=== PATIENT | female | born 1990 | race Caucasian/White ===

== ENCOUNTER 2019-09-11 05:15 | Inpatient (IN) | payer OTHER ==
[2019-09-11] VITALS (7 sets, daily range): BP systolic 97–107; BP diastolic 52–67
[~2019-09-11] VITALS: Ht 160 cm; Wt 74.0 kg
[2019-09-11] MEDS ORDERED: OXYTOCIN 30 UNITS IN 0.9% NaCl 500ML IV BAG (J2590) As Ordered ONE (05:34)
[2019-09-11] MEDS ORDERED: PENICILLIN G POTASSIUM IV 5 MU in D5W MINI-BAG PLUS 100 ML IV STA (05:54)
[2019-09-11] MEDS ORDERED: LACTATED RINGER'S 1000 ML IV STA (05:54)
[2019-09-11] MEDS ORDERED: LR 1,000 ML IV SCH (05:54)
--- NOTE | 2019-09-11 07:04 | HPEPDOC ---
Obstetrical History & Physical General Date of Admission Sep 11, 2019 at 05:42 History of Present Illness Patient is a 29yo G 3 P 2 at 39.2 wks by LMP c/w 9 wk US with contractions. Patient presented with consistent contractions every 2-3 minutes with contractions beginning at 10 PM the night before and becoming stronger and more closer together at 2 AM. No loss of fluid or vaginal bleeding or headaches or visual disturbances. Good movement. Chief Complaint: Contractions, term Information Provided By: Patient : 3 Term: 2 Livin Care Care: Good Care Dating Final EDC for Daily Update: Sep 15, 2019 Final EDC by: LMP Antepartum Course Height (inches): 67 Pre- weight (lbs.): 137 Admission Weight (lbs.): 162 Past Medical History Past Obstetrical History : Past Obstetrical History: Multigravida Type of Delivery: Spontaneous Vaginal Del. Complications: No LOOM TUNER History: No pertinent history Past Medical History Medical History none Surgical History: [place] teeth Family History Significant Family History: No pertinent family hx Social History Social history [place] Marital Status: Family situation: Spouse/partner home Psychosocial History: No pertinent psych hx * Smoker: non-smoker Alcohol: Denies Drugs: denies Abuse Violence Screening Have you been hit/kicked/slapp: No Have you been sexually assault: No Imunizations Tdap status: current Influenza Status: current Allergies Coded Allergies: No Known Allergies (Unverified , 09/11/19) Physical Examination Physical Examination GENERAL: Alert and oriented times three. BREAST: . ABDOMEN: Gravid and non-tender to touch. FETUS: Is vertex (VTX) by sterile vaginal examination (SVE), fetus is 3500 by Rashel. HEART RATE: Regular rate and rhythm. LUNGS: Clear to auscultation (CTA). EXTREMITIES: No edema. Laboratory Data 24H LABS Laboratory Tests 2 09/11/19 05:49: Serology Scanned Report Hepatitis B Testing CBC/BMP hct 32.0 Urine Culture: No Growth Pertinent Laboratoy Data Blood Type: O+ RBC Antibody Screen: Negative HIV: Negative Hepatitis B: Negative Rapid Plasma Reagin: Nonreactive Rubella: Immune Varicella: Immune Chlamydia/Gonorrhea: Positive Group B Streptococcus: Positive Glucose Tolerance Test: 117 Anatomy Ultrasound Ultrasound Date: Apr 26, 2019 Placenta Location: Posterior Normal Anatomy: Yes Placenta Previa: No Estimated Weight (grams): 320 Steroid Therapy Steroid Therapy: No Vaginal Examination Dilation: 9 cm Effacement: 100% Station: +1 Cervical Consistency: Soft Cervical Position: Anterior Presentation: Cephalic presentation Assessment Heart Rate (FHR): 130 Variability: Moderate Accelerations: Positive Decelerations: None Tocometer Contractions: Yes Frequency: every 1-3 min. Multi-drug resistant Organism: No history of MDRO Assessment/Plan Assessment Patient is a 29yo G 3 P 2 at 39.2 wks by LMP c/w 9 wk US with contractions. Admit for labor and expect delivery by . Pain management per patient preference, which was discussed with her. I discussed risks of with patient of failure with section, distress, bleeding, infection, , vaginal or perineal or neighboring organ tear. Currently, fetus is reassuring. GBS is. Positive,, will need for antibiotics. Plan Admit and orient. Call Out Operator and consent. Diet: Clears. Group B Streptococcus (GBS), positive requiring antibiotics. Labs and intravenous (IV) per unit protocol. Counseled on Pitocin and augmentation of labor. Lactated Ringers (LR): Bolus 500 mL, then at one 25 mL/hr. Anticipate normal spontaneous delivery (). C-S as appropriate. Pain management per patient. Amy Curry MD Sep 11, 2019 07:04
[2019-09-11] MEDS ORDERED: OXYTOCIN DRIP 30 UNITS in IV 1 EA IV SCH (07:08)
--- NOTE | 2019-09-11 07:08 | DNPDOC ---
[facility] Delivery Note Delivery Note DATE OF DELIVERY: 09/11/2019 PREDELIVERY DIAGNOSIS: 39-2/7 weeks' gestation and labor. POST DELIVERY DIAGNOSIS: Delivered. PROCEDURE: Spontaneous vaginal delivery. INFERTILITY NURSE: Dr. Crury ANESTHESIA:. None. ESTIMATED BLOOD LOSS: 300 mL. FINDINGS: Not weighed at this time. Girl infant, Score, 9/9, nuchal cord times 0. DELIVERY SUMMARY: Patient is a 29-year-old 3 now para 3 who was admitted to labor and delivery for active labor for 8 hours. Patient SROM clear around 0 520. Baby girl head was delivered without difficulty over intact perineum in ROP position at 0636. The nose and mouth were bulb suctioned. No nuchal cord was noted. The shoulders were then delivered without difficulty. Infant was handed on mother's belly. Cord was then clamped x2 and cut after pulsation. Pitocin bolus was started. Perineum and vagina was inspected and found to have no laceration. The placenta was then delivered at 0641 spontaneously intact. Cord had a 3 vessel cord. EBL was 300 mL. The vagina and perineum were reinspected and no further lacerations were found and hemostasis was good. Fundus was firm. Patient tolerated delivery well. Amy Curry MD Sep 11, 2019 07:07
[2019-09-11] MEDS ORDERED: METHYLERGONOVINE MALEATE 0.2 MG TAB PO PRN (07:15)
[2019-09-11] MEDS ORDERED: ONDANSETRON 4MG/2ML VIAL IV PRN (07:15)
[2019-09-11] MEDS ORDERED: ACETAMINOPHEN 500 MG TAB PO PRN (07:15)
[2019-09-11] MEDS ORDERED: ANUSOL HC CREAM 30GM TOP PRN (07:15)
[2019-09-11] MEDS ORDERED: DIBUCAINE 1% OINTMENT 30GM TOP PRN (07:15)
[2019-09-11] MEDS ORDERED: MEASLES,MUMPS,RUBELLA VACCINE INJ (MMR-II) (90707) SC SCH (07:15)
[2019-09-11] MEDS: PRENATAL VITAMINS CHEWABLE TABLET PO SCH (09:28)
[2019-09-11] MEDS: DOCUSATE SODIUM 100 MG CAP PO SCH ×2 (09:28→21:28)
[2019-09-11] MEDS ORDERED: PENICILLIN G POTASSIUM IV 2.5 MU in IV 1 EA IV SCH (10:00)
[2019-09-11] MEDS: IBUPROFEN 800 MG TAB PO PRN ×2 (11:25→21:42)
[2019-09-11 19:10] LABS: HEMATOCRIT 37.7 % (36.0-47.0); HEMOGLOBIN 12.6 g/dl (12.0-15.5); MEAN CORPUSCULAR HEMOGLOBIN 32.5 pg (27.0-33.0); MEAN CORPUSCULAR HGB CONC 33.4 g/dl (32.0-36.5); MEAN CORPUSCULAR VOLUME 97.2 fl (80.0-96.0); PLATELET COUNT, AUTOMATED 178 10^3/uL (150-450); RED BLOOD COUNT 3.88 10^6/uL (4.00-5.40); WHITE BLOOD COUNT 10.9 10^3/uL (4.0-10.0)
--- NOTE | 2019-09-12 06:21 | IPNPDOC ---
Progress Note Date of Service: Sep 12, 2019 Day#: 1 Progress Note SUBJECT: Patient is a 29 yo PPD #1 s/p . Patient without concerns tod ay. She has been ambulating, voiding spontaneously without issue and tolerating regular diet. Breast feeding without issue. plans on paragard IUD for contraceptive. OBJECTIVE: VITAL SIGNS: Within normal limits, afebrile. Alert and oriented times three. Abdomen: Fundus firm at U-2. Soft, NTTP. LE: no edema/erythema/tenderness A/P PPD #1, doing well. GBS positive, no adequately treated. continue routine care. encourage BF. contraceptive counseling. anticipate d/c home on ppd #2. VS, I&O, 24H, Fishbone Vital Signs/I&O Vital Signs Date Time Temp Pulse Resp B/P (MAP) Pulse Ox O2 Delivery O2 Flow Rate FiO2 09/11/19 18:06 98.3 75 16 107/67 (80) 09/11/19 07:36 Room Air I&O- Last 24 Hours up to 6 AM 09/12/19 06:00 Intake Total 480 ml Output Total 1000 ml Balance -520 ml LAXMI COTTER DO Sep 12, 2019 06:21
[2019-09-12 06:35] VITALS: BP 107/60
[2019-09-12] MEDS: DOCUSATE SODIUM 100 MG CAP PO SCH ×2 (07:33→20:41)
[2019-09-12] MEDS: PRENATAL VITAMINS CHEWABLE TABLET PO SCH (07:33)
[2019-09-12] MEDS: IBUPROFEN 800 MG TAB PO PRN (07:37)
[2019-09-12] MEDS ORDERED: BOOSTRIX/ADACEL VACCINE (DIPHTH/PERTUSS/ACELL/TETANUS) 0.5ML SYR IM ONE (09:00)
[2019-09-12 18:00] VITALS: BP 108/56
[2019-09-13 06:31] VITALS: BP 100/53
--- NOTE | 2019-09-13 06:55 | IPNPDOC ---
Progress Note Date of Service: Sep 13, 2019 Day#: 2 Progress Note SUBJECT: Patient is a 29-year-old 3 now Para 3 status post uncomplicated spontaneous vaginal delivery without post vaginal laceration, doing well day # 2. She has been ambulating, voiding spontaneously without issue and tolerating regular diet. Breast feeding without issue. Reports lochia is less than normal period. Patient is ambulating well. Denies cramping with . Denies any pain. OBJECTIVE: VITAL SIGNS: Within normal limits, afebrile. GENERAL: No acute distress HEENT: Mucous membranes are moist BREAST: Nontender, no erythema CARDIOVASCULAR: RRR RESPIRATORY: Bilaterally clear ABDOMINAL EXAMINATION: Soft, appropriate tenderness, nondistended, fundus -2 PERINEUM: Intact, minimal lochia EXTREMITIES: no edema, nontender ASSESSMENT: Patient is a 29-year-old 3 now Para 3 status post uncomplicated spontaneous vaginal delivery without post vaginal laceration, doing well day # 2. Vitals within normal limits, afebrile, hemodynamically stable with no evidence of infection. PLAN: 1. Discharge to home today if baby able to. 2. Tylenol and Motrin for pain. 3. Encourage breast feeding and ambulation. 4. Routine PP visit in 6 weeks in clinic. 5. Discussed return precautions at length. VS, I&O, 24H, Fishbone Vital Signs/I&O Vital Signs Date Time Temp Pulse Resp B/P (MAP) Pulse Ox O2 Delivery O2 Flow Rate FiO2 09/12/19 06:35 98.4 95 18 107/60 (76) 09/11/19 07:36 Room Air I&O- Last 24 Hours up to 6 AM 09/12/19 06:00 Intake Total 480 ml Output Total 1000 ml Balance -520 ml Amy Curry MD Sep 12, 2019 16:10
[2019-09-13] MEDS: PRENATAL VITAMINS CHEWABLE TABLET PO SCH (08:09)
[2019-09-13] MEDS: DOCUSATE SODIUM 100 MG CAP PO SCH (08:09)
[2019-09-13] MEDS: IBUPROFEN 800 MG TAB PO PRN (09:51)
== END 2019-09-13 11:30 | disposition home or self-care (01) | DRG 807 ==
LOC: M LDO 05:15 → M LDI 05:42 → M OBS 10:50
PROVIDERS: ADMIT Obstetrics & Gynecology; ATTEND Obstetrics & Gynecology
PROC: 10E0XZZ Delivery of Products of Conception, External Approach (ICD-10-PCS; principal; 2019-09-11)
DX: O99.824 Streptococcus B carrier state complicating childbirth (principal); Z37.0 Single live birth; Z3A.39 39 weeks gestation of pregnancy